=== PATIENT | female | born 1990 | race Caucasian/White ===

== ENCOUNTER 2018-12-26 20:09 | Emergency (ER) | payer BC, OTHER ==
[~2018-12-26] VITALS: Ht 167.6 cm; Wt 100.0 kg
[~2018-12-26 20:09] MED LIST: HYDR-4383 PO; NORG1TAB14 PO
[2018-12-26] MEDS ORDERED: propofol 10mg/ml 20ml vial IV ONE (20:30)
[2018-12-26] MEDS ORDERED: morphine 10mg/ml inj. IV ONE (20:30)
[2018-12-26] MEDS ORDERED: HYDROcodone/acetaminophen 10/325mg tab PO ONE (21:10)
[2018-12-26] MEDS ORDERED: HYDR-4353 PO (21:36)
[2018-12-26 21:57] VITALS: BP 123/82
== END 2018-12-26 21:59 | disposition home or self-care (01) ==
LOC: ER 20:09
DX: S82.842A Displaced bimalleolar fracture of left lower leg, initial encounter for closed fracture (principal); S93.05XA Dislocation of left ankle joint, initial encounter; X58.XXXA Exposure to other specified factors, initial encounter; Y93.89 Activity, other specified; Y92.89 Other specified places as the place of occurrence of the external cause; Y99.8 Other external cause status
CPT/HCPCS: 27810; 73610; 96374; 99285; J2270; J2704; 96372; 99152; 99153

== ENCOUNTER 2019-01-01 15:38 | Outpatient (CLI) | payer BC, OTHER ==
[~2019-01-01 15:38] MED LIST changes: +HYDR-4353 PO
== END 2019-01-01 17:45 | disposition home or self-care (01) ==
LOC: ORTHO 15:38
PROVIDERS: ATTEND Orthopaedic Surgery
DX: S82.842D Displaced bimalleolar fracture of left lower leg, subsequent encounter for closed fracture with routine healing (principal); X58.XXXD Exposure to other specified factors, subsequent encounter
CPT/HCPCS: G0463

== ENCOUNTER 2019-01-11 11:05 | Day surgery (SDC) | payer BC ==
[2019-01-10 16:08] LABS: BASOPHILS # (AUTO) 0.1 X10'3 (0-0.2); BASOPHILS % (AUTO) 0.7 % (0-1); EOSINOPHILS # (AUTO) 0.1 X10'3 (0-0.9); EOSINOPHILS % (AUTO) 1.2 % (0-6); LYMPHOCYTES # (AUTO) 1.8 X10'3 (1.1-4.8); LYMPHOCYTES % (AUTO) 23.7 % (21-51); MEAN CORPUSCULAR HEMOGLOBIN 31.2 PG (27.0-31.0); MEAN CORPUSCULAR HGB CONC 34.4 g/dL (33.0-36.5); MEAN CORPUSCULAR VOLUME 90.6 FL (78-98); MEAN PLATELET VOLUME 7.8 FL (7.4-10.4); MONOCYTES # (AUTO) 0.4 X10'3 (0-0.9); MONOCYTES % (AUTO) 4.7 % (2-12); NEUTROPHILS # (AUTO) 5.4 X10'3 (1.8-7.7); NEUTROPHILS % (AUTO) 69.7 % (42-75); PRE OP HEMATOCRIT 39.9 % (35.0-45.0); PRE OP HEMOGLOBIN 13.7 g/dL (12.0-16.0); PRE OP PLATELET COUNT 381 X10'3 (140-440); RED BLOOD COUNT 4.41 X10'6 (4.20-5.60); RED CELL DISTRIBUTION WIDTH 12.9 % (11.5-14.5)
[2019-01-10 16:25] LABS: ALBUMIN 3.5 G/DL (3.4-5.0); ALBUMIN/GLOBULIN RATIO 0.7 (1.1-1.5); ALKALINE PHOSPHATASE 59 IU/L (46-116); BLOOD UREA NITROGEN 14 MG/DL (7-18); BUN/CREATININE RATIO 18.4 (6.6-38.0); CALCIUM 8.9 MG/DL (8.5-10.1); CHLORIDE 103 MMOL/L (99-107); CREATININE 0.76 MG/DL (0.40-0.90); PRE OP ALT 13 U/L (30-65); PRE OP ANION GAP 7 (8-16); PRE OP AST 17 U/L (10-37); PRE OP BILIRUB, TOTAL 0.2 MG/DL (0.0-1.0); PRE OP GLUCOSE 100 MG/DL (70-104); PRE OP POTASSIUM 3.9 MMOL/L (3.4-5.1); PRE OP SODIUM 138 MMOL/L (135-145); TOTAL CARBON DIOXIDE 27.8 MMOL/L (24-32); TOTAL PROTEIN 8.2 G/DL (6.4-8.2); eGFR > 90 ML/MIN
[2019-01-11] VITALS (7 sets, daily range): BP systolic 113–137; BP diastolic 69–82
[~2019-01-11] VITALS: Ht 167.6 cm; Wt 97.5 kg
[~2019-01-11 11:05] MED LIST changes: +ACET-812 PO; -HYDR-4383 PO; +IBUP-1985 PO; +cefazolin/dext.iso 2gm/100ml 100 ML IV ONE; +famotidine 20mg tablet PO ONE; +ringers solution, lacted 1,000 ML IV SCH
[2019-01-11] MEDS ORDERED: BUPIVAcaine/PF 2.5 mg/ml (0.25%) 30ml vial ONE (13:46)
[2019-01-11] MEDS ORDERED: ceFAZolin 1000mg inj ONE (13:46)
[2019-01-11] MEDS ORDERED: sevoflurane 250ml liquid IH ONE (13:58)
[2019-01-11] MEDS ORDERED: MIDAZolam 5mg/5ml vial ONE (13:59)
[2019-01-11] MEDS ORDERED: fentaNYL /PF 50mcg/ml 5ml ampule ONE (14:00)
[2019-01-11] MEDS ORDERED: ceFAZolin 1000mg inj IR ONE (14:14)
[2019-01-11] MEDS ORDERED: BUPIVAcaine/PF 2.5 mg/ml (0.25%) 30ml vial IJ ONE (14:15)
[2019-01-11] MEDS ORDERED: ketamine 50mg/5ml syringe ONE (15:36)
[2019-01-11] MEDS ORDERED: meperidine/PF 50mg/ml syringe ONE (15:38)
--- NOTE | 2019-01-11 15:45 | NUR ---
Received from OR via BED , accompanied by Anesthesiologist DR HARRIS and report given by Anesthesiolgist. PATIENT WAKING UP, DENIES PAIN, V/S WNL, NEUROVASCULAR CHECKS INTACT, 20G PIV LUE , DRESSING SPLINT TO LEFT ANKLE CDI W/ COLD POWDER PACK W/ SCD ON LLE.
[2019-01-11] MEDS ORDERED: dexamethasone sod phosphate 4mg/ml inj. ONE (16:03)
[2019-01-11] MEDS ORDERED: propofol inj 20 ML IV ONE (16:03)
[2019-01-11] MEDS ORDERED: LIDOcaine 1%/PF 5ML 10 MG/ML VIAL ONE (16:03)
[2019-01-11] MEDS ORDERED: acetaminophen 1,000mg/100ml IV 100 ML IV ONE (16:03)
[2019-01-11] MEDS ORDERED: ondansetron/PF 4mg/2ml inj ONE (16:03)
--- NOTE | 2019-01-11 16:25 | NUR ---
PATIENT A&OX4, DENIES PAIN, V/S WNL, NEUROVASCULAR CHECKS INTACT, 20G PIV LUE D/C , DRESSING SPLINT TO LEFT ANKLE CDI W/ COLD POWDER PACK W/ SCD OFF LLE. I HAVE REVIEWED D/C INSTRUCTIONS WITH PATIENT AND FAMILY AND THEY HAVE VERBALIZED UNDERSTANDING. PATIENT D/C HOME WITH ALL BELONGINGS AND FAMILY GAVE TRANSPORT HOME.
== END 2019-01-11 16:25 | disposition home or self-care (01) ==
LOC: PAS 11:05
PROVIDERS: ATTEND Orthopaedic Surgery
PROC: 0QSK04Z Reposition Left Fibula with Internal Fixation Device, Open Approach (ICD-10-PCS; principal; 2019-01-11 13:58)
DX: S82.842A Displaced bimalleolar fracture of left lower leg, initial encounter for closed fracture (principal); M25.572 Pain in left ankle and joints of left foot; X58.XXXA Exposure to other specified factors, initial encounter; Y93.89 Activity, other specified; Y92.89 Other specified places as the place of occurrence of the external cause; E66.9 Obesity, unspecified
CPT/HCPCS: 27814; 36415; 80053; 82948; 85025; 93005; C1713; J0131; J0690; J1100; J2175; J2250; J2405; J2704; J3010; J3490; J7120; A4215; A4618; A6449; A7000

== ENCOUNTER 2019-01-22 15:32 | Outpatient (CLI) | payer BC, OTHER ==
[~2019-01-22 15:32] MED LIST changes: -cefazolin/dext.iso 2gm/100ml 100 ML IV ONE; -famotidine 20mg tablet PO ONE; -ringers solution, lacted 1,000 ML IV SCH
== END 2019-01-22 17:00 | disposition home or self-care (01) ==
LOC: ORTHO 15:32
PROVIDERS: ATTEND Nurse Practitioner
DX: S82.842D Displaced bimalleolar fracture of left lower leg, subsequent encounter for closed fracture with routine healing (principal); S93.05XD Dislocation of left ankle joint, subsequent encounter; X58.XXXD Exposure to other specified factors, subsequent encounter
CPT/HCPCS: G0463

== ENCOUNTER 2019-01-29 09:46 | Outpatient (CLI) | payer BC, OTHER ==
[~2019-01-29 09:46] MED LIST changes: -HYDR-4353 PO
== END 2019-01-29 11:00 | disposition home or self-care (01) ==
LOC: ORTHO 09:46
PROVIDERS: ATTEND Nurse Practitioner
DX: S82.842D Displaced bimalleolar fracture of left lower leg, subsequent encounter for closed fracture with routine healing (principal); S93.05XD Dislocation of left ankle joint, subsequent encounter; X58.XXXD Exposure to other specified factors, subsequent encounter
CPT/HCPCS: G0463

== ENCOUNTER 2019-02-26 09:57 | Outpatient (CLI) | payer BC, OTHER | END 2019-02-26 11:00 | disposition home or self-care (01) | LOC: ORTHO 09:57 | PROVIDERS: ATTEND Nurse Practitioner | DX: S82.492D Other fracture of shaft of left fibula, subsequent encounter for closed fracture with routine healing (principal); X58.XXXD Exposure to other specified factors, subsequent encounter | CPT/HCPCS: 73610; G0463 ==